=== PATIENT | female | born 1995 | race Caucasian/White ===

== ENCOUNTER 2016-08-20 10:38 | Emergency (ER) | payer OTHER ==
[2016-08-20 10:54] VITALS: RESP 18
[2016-08-20] MEDS ORDERED: ONDANSETRON 4 MG/2 ML VIAL IVP ONE (11:37)
[2016-08-20] MEDS ORDERED: NS 1,000 ML IV ONE (11:37)
[2016-08-20] MEDS ORDERED: ONDANSETRON 4 MG/2 ML VIAL ONE (11:37)
--- NOTE | 2016-08-20 11:41 | UCPHY ---
H & P Time Seen by Provider: 08/20/16 11:20 Patient Type: Established HPI/ROS: This patient presents with a chief complaint of abdominal pain, nausea, vomiting , diarrhea all of which began 4 hours prior to my evaluation. She says that she has had 3 or 4 episodes of vomiting and 2 or 3 episodes of diarrhea neither containing blood. Last night she was feeling congested and generally unwell and this continues but she had no gastrointestinal symptoms at that time. The patient denies any radiation of the pain and also denies any palliative or provocative features. She has not felt feverish. She denies any recent exposure to anyone with a similar illness, denies ingesting any questionable foods and has not traveled recently. This patient has been seen here 3 times in the past 3 years for similar symptoms. On the 2 previous 2 visits she was thought to have had gastroenteritis. REVIEW OF SYSTEMS: Constitutional: Malaise, no fever Eyes: No complaints ENT: Nasal congestion, denies sore throat or ear pain Respiratory: Mild cough Cardiac: No chest pain Gastrointestinal: See above Genitourinary: No complaints Musculoskeletal: No myalgias Skin: No rash Neurological: Mild headache Smoking Status: Never smoked Physical Exam: GENERAL: Well-appearing, well-nourished and in no acute distress. HEAD: Atraumatic, normocephalic. EYES: sclera anicteric, conjunctiva are normal. ENT: oropharynx clear without exudates. Moist mucous slightly dry. NECK: Normal range of motion, supple without lymphadenopathy or JVD. LUNGS: Breath sounds clear to auscultation bilaterally and equal. No wheezes rales or rhonchi. HEART: Regular rate and rhythm ABDOMEN: Soft, minimally tender in the periumbilical area, normoactive bowel sounds. No guarding, no rebound. No masses appreciated. EXTREMITIES: Normal range of motion, no pitting or edema. No clubbing or cyanosis. NEUROLOGICAL: Cranial nerves II through XII grossly intact. Normal speech, normal gait. PSYCH: Normal mood, normal affect. SKIN: Warm, dry, normal turgor, no visible rashes or lesions. Constitutional: Initial Vital Signs Temperature (C) 36.8 C 08/20/16 10:52 Heart Rate 89 08/20/16 10:52 Respiratory Rate 18 08/20/16 10:52 Blood Pressure 128/76 H 08/20/16 10:52 O2 Sat (%) 95 08/20/16 10:52 O2 Delivery Mode Room Air Allergies/Adverse Reactions: No Known Allergies Allergy (Verified 08/20/16 12:05) Home Medications: Medication Instructions Recorded Desogestrel-Ethinyl Estradiol 12/23/14 [Apri 28 Day Tablet] Ondansetron Odt [Zofran Odt] 4 mg PO Q4PRN PRN #4 tab 08/20/16 Phenergan 25mg (*) 08/20/16 Medical Decision Making ED Course/Re-evaluation: An IV was started and the patient was given 1 L of normal saline and 4 mg of Zofran intravenously. On discharge is patient was feeling significantly improved with no persistent nausea, no recurrence of the diarrhea and resolution of the abdominal pain. Differential Diagnosis: I believe that this patient has a viral gastroenteritis and that add there is no evidence of any serious intra-abdominal pathology including appendicitis, PID , ovarian cyst or ectopic . - Data Points Medications Given: Discontinued Medications Sodium Chloride (Ns) 1,000 mls @ 0 mls/hr IV ONCE ONE PRN Reason: As Directed Stop: 08/20/16 11:38 Last Admin: 08/20/16 11:52 Dose: 1,000 mls Ondansetron HCl (Zofran) 4 mg IVP EDNOW ONE Stop: 08/20/16 11:38 Last Admin: 08/20/16 11:52 Dose: 4 mg Departure - Departure Disposition: Home, Routine, Self-Care Clinical Impression: Acute gastroenteritis Condition: Good Instructions: Acute Nausea and Vomiting (ED), Gastroenteritis (ED), Dehydration (ED) Additional Instructions: If your symptoms return you should be re-evaluated immediately. Do not eat any solids for the next 8 hours but to keep herself well hydrated with small sips of fluid frequently. Referrals: Darlene Fish MD [Primary Care Provider] - As per Instructions Prescriptions: Ondansetron Odt [Zofran Odt] 4 mg PO Q4PRN PRN #4 tab PRN Reason: For Nausea & Vomiting - PQRS PQRS Measurement: Not applicable
[2016-08-20 12:43] VITALS: BP 122/71; PULSE 76; TEMP 98.1; O2SAT 97
[2016-08-20 13:00] LABS: % IMMATURE GRANULYOCYTES 0.1 % (0.0-1.1); ABSOLUTE IMMATURE GRANULOCYTES 0.01 10^3/uL (0.00-0.10); ADD DIFF? NO; ADD MORPH? NO; ADD SCAN? NO; ATYPICAL LYMPHOCYTE FLAG 20 (0-99); FRAGMENT RBC FLAG 0 (0-99); HEMATOCRIT 48.6 % (38.0-47.0); HEMOGLOBIN 16.5 g/dL (12.6-16.3); LEFT SHIFT FLG 0 (0-99); LIPEMIA HEMOLYSIS FLAG 90 (0-99); MEAN CELL HEMOGLOBIN 29.8 pg (27.9-34.1); MEAN CELL VOLUME 87.7 fL (81.5-99.8); MEAN PLATELET VOLUME 9.8 fL (8.7-11.7); PLATELET CLUMPS FLAG 10 (0-99); PLATELET COUNT 282 10^3/uL (150-400); RED BLOOD CELL COUNT 5.54 10^6/uL (4.18-5.33); RED CELL DISTRIBUTION WIDTH 12.5 % (11.5-15.2)
[2016-08-20 13:05] LABS: ANION GAP 13 mEq/L (8-16); CALCIUM 9.4 mg/dL (8.5-10.4); CARBON DIOXIDE 25 mEq/l (22-31); CHLORIDE 104 mEq/L (97-110); CREATININE 0.8 mg/dL (0.6-1.0); GLOMERULAR FILTRATION RATE > 60; GLUCOSE 90 mg/dL (70-100); SODIUM 142 mEq/L (134-144)
== END 2016-08-20 12:48 | disposition home or self-care (01) ==
LOC: CED 10:38
DX: K52.9 Noninfective gastroenteritis and colitis, unspecified (principal)
CPT/HCPCS: 80048-PO; 85025-PO; 96361-PO; 96374-PO; 99214-PO; G0463-PO; J2405

== ENCOUNTER 2016-10-13 10:02 | Emergency (ER) | payer OTHER ==
[2016-10-13 10:17] VITALS: O2SAT 96
[2016-10-13] MEDS ORDERED: NS 1,000 ML IV ONE (11:13)
--- NOTE | 2016-10-13 11:16 | EDPHY ---
H & P Stated Complaint: N/V wantes US, seen at [facility] [place] several times for same complaint Source: Patient - Personal History LMP (Females 10-55): Over 28 Days Ago Current Tetanus/Diphtheria Vaccine: Yes Current Tetanus Diphtheria and Acellular Pertussis (TDAP): Yes - Medical/Surgical History Hx Asthma: No Hx Chronic Respiratory Disease: No Hx Diabetes: No Hx Cardiac Disease: No Hx Renal Disease: No Hx Cirrhosis: No Hx Alcoholism: No Hx HIV/AIDS: No Hx Splenectomy or Spleen Trauma: No Other PMH: ADD, IBS, GERD - Social History Smoking Status: Never smoked Time Seen by Provider: 10/13/16 11:00 HPI/ROS: CHIEF COMPLAINT: Nausea vomiting diarrhea since this morning HISTORY OF PRESENT ILLNESS: 21-year-old female complaining of nausea vomiting diarrhea since 6:00 a.m. today. No focal abdominal pain. She had scant amount of bloody appearing emesis, currently resolved. No melena or hematochezia. No fever or chills. She has had recurrent symptoms similar to this for the past 2- 3 years, has been seen initially by pediatric lead cashier with negative upper endoscopy and is currently being followed by Dr. Misty nicole and has an MRCP that is being scheduled by her office. REVIEW OF SYSTEMS: A ten point review of systems was erformed and is negative with the exception of the items mentioned in the HPI PAST MEDICAL & SURGICAL HISTORY: Ongoing history of similar symptoms SOCIAL HISTORY: nonsmoker no alcohol PHYSICAL EXAM (Prior to examination, patient consented to physical exam, hands were washed and my usual and customary physical exam procedures followed) 1) GENERAL: Well-developed, well-nourished, alert and oriented. Appears to be in no acute distress. 2) HEAD: Normocephalic, atraumatic 3) HEENT: Pupils equal, round, reactive to light bilaterally. Sclera anicteric. Nasopharynx, oropharynx, clear, no lesions. Ears bilaterally with normal tympanic membranes. 4) NECK: Full range of motion, no meningeal signs. 5) LUNGS: Clear auscultation bilaterally, no wheezes, no rhonchi, no retractions. 6) HEART: Regular rate and rhythm, no murmur, no heave, no gallop. 7) ABDOMEN: No guarding, no rebound, no focal tenderness, negative McBurney's, negative Salas's, negative Rovsing's, negative peritoneal sign,I am unable to elicit any abdominal pain on exam. 8) MUSCULOSKELETAL: Moving all extremities, no focal areas of tenderness, no obvious trauma. No peripheral edema or discoloration. 9) BACK: No CVA tenderness, no midline vertebral tenderness, no fluctuance, no step-off, no obvious trauma, no visual or palpable abnormality. 10) SKIN: No rash, no petechiae. 11) Psychiatric: Patient is oriented X 3, there is no agitation. DIFFERENTIAL DIAGNOSIS: My differential diagnosis includes, but is not limited to, acute appendicitis, acute cholecystitis, bowel obstruction, acute pancreatitis, ovarian torsion, ectopic , gastritis . The patient understands that this diagnosis is provisional and can never be 100% accurate. This is a partial list of diagnoses considered. These considerations are based on history, physical exam, past history and reassessment. (Jose Luis Silveira) Constitutional: Initial Vital Signs Temperature (C) 36.6 C 10/13/16 10:13 Heart Rate 87 10/13/16 10:13 Respiratory Rate 16 10/13/16 10:13 Blood Pressure 107/79 10/13/16 10:13 O2 Sat (%) 96 10/13/16 10:13 O2 Delivery Mode Room Air Allergies/Adverse Reactions: No Known Allergies Allergy (Verified 08/20/16 12:05) Home Medications: Medication Instructions Recorded Desogestrel-Ethinyl Estradiol 12/23/14 [Apri 28 Day Tablet] Ondansetron Odt [Zofran Odt] 4 mg PO Q4PRN PRN #4 tab 08/20/16 Phenergan 25mg (*) 08/20/16 Ondansetron Odt [Zofran Odt] 4 mg PO Q4PRN PRN #10 tab 10/13/16 Medical Decision Making ED Course/Re-evaluation: 11:14 a.m.: Patient has not received anti emetic. I have examined. She would like to attempt oral fluid challenge prior to receiving anti emetic. At this time she has no abdominal pain. Doubt acute surgical abdominal pathology. She did inquire about ultrasound stating that she contacted the phone nurse recommend she get an ultrasound for possible etiology of her hematemesis. We discussed the possibility of Hannah-Escobar tear. She is currently asymptomatic. I do not think that ultrasonography is currently indicated as I doubt acute cholecystitis or acute appendicitis. The father also inquired about having an MRCP performed which is currently to be scheduled by Dr. Molina. I Do not think emergent MRCP is indicated. 12:30 p.m.: Patient re-evaluated. She has not been given any antiemetics in the ER and has tolerate oral intake. Re-examined her. Her abdomen is soft no guarding no rebound. Doubt acute surgical abdominal pathology. She would like me to speak with her lead cashier to provide updates. 12:50 p.m.: Phone consultation with Dr. Mohit Parra, on-call for Dr. Molina . I have updated Dr. Mohit Parra with the patient's diagnostic results, current physical exam findings. Patient re-examined at this time. She is smiling, sitting upright, no guarding of abdomen, soft abdomen with no McBurney's point pain, negative Salas's sign.Patient is tolerating oral intake. Doubt acute surgical abdominal pathology. Do not think that emergent imaging studies indicated. Patient is comfortable with this plan. usual and customary discharge precautions instructions provided. (Jose Luis Silveira) Other Provider: The patient was evaluated and managed by the Physician Vegetable Farmer/ Nurse Practitioner. My co-signature indicates that I have reviewed this chart and I agree with the findings and plan of care as documented. I am the secondary supervising physician. (Archana Wesley) - Data Points Laboratory Results: Laboratory Results 10/13/16 10:51 10/13/16 10:51 10/13/16 10/13/16 10/13/16 10:51 10:51 10:51 WBC 11.45 10^3/uL H 10^3/uL (3.80-9.50) RBC 5.22 10^6/uL 10^6/uL (4.18-5.33) Hgb 15.7 g/dL g/dL (12.6-16.3) Hct 45.2 % % (38.0-47.0) MCV 86.6 fL fL (81.5-99.8) MCH 30.1 pg pg (27.9-34.1) MCHC 34.7 g/dL g/dL (32.4-36.7) RDW 12.9 % % (11.5-15.2) Plt Count 368 10^3/uL 10^3/uL (150-400) MPV 9.4 fL fL (8.7-11.7) Neut % (Auto) 82.8 % H % (39.3-74.2) Lymph % (Auto) 13.4 % L % (15.0-45.0) [place] % (Auto) 2.8 % L % (4.5-13.0) Eos % (Auto) 0.2 % L % (0.6-7.6) Baso % (Auto) 0.5 % % (0.3-1.7) Nucleat RBC Rel Count 0.0 % % (0.0-0.2) Absolute Neuts (auto) 9.48 10^3/uL H 10^3/uL (1.70-6.50) Absolute Lymphs (auto) 1.53 10^3/uL 10^3/uL (1.00-3.00) Absolute Monos (auto) 0.32 10^3/uL 10^3/uL (0.30-0.80) Absolute Eos (auto) 0.02 10^3/uL L 10^3/uL (0.03-0.40) Absolute Basos (auto) 0.06 10^3/uL 10^3/uL (0.02-0.10) Absolute Nucleated RBC 0.00 10^3/uL 10^3/uL (0-0.01) Immature Gran % 0.3 % % (0.0-1.1) Immature Gran # 0.04 10^3/uL 10^3/uL (0.00-0.10) Sodium 143 mEq/L mEq/L (134-144) Potassium 4.3 mEq/L mEq/L (3.5-5.2) Chloride 106 mEq/L mEq/L (97-110) Carbon Dioxide 23 mEq/l mEq/l (22-31) Anion Gap 14 mEq/L mEq/L (8-16) BUN 12 mg/dL mg/dL (7-23) Creatinine 0.8 mg/dL mg/dL (0.6-1.0) Estimated GFR > 60 Glucose 96 mg/dL mg/dL (70-100) Calcium 10.1 mg/dL mg/dL (8.5-10.4) Total Bilirubin 0.7 mg/dL mg/dL (0.1-1.4) Conjugated Bilirubin 0.5 mg/dL mg/dL (0.0-0.5) Unconjugated Bilirubin 0.2 mg/dL mg/dL (0.0-1.1) AST 33 IU/L IU/L (14-46) ALT 44 IU/L IU/L (9-52) Alkaline Phosphatase 75 IU/L IU/L (38-126) Total Protein 8.6 g/dL H g/dL (6.3-8.2) Albumin 4.9 g/dL g/dL (3.5-5.0) Lipase 234.0 IU/L IU/L (23-300) Beta HCG, Qual NEGATIVE Medications Given: Discontinued Medications Sodium Chloride (Ns) 1,000 mls @ 0 mls/hr IV ONCE ONE PRN Reason: Wide Open Stop: 10/13/16 11:14 Last Admin: 10/13/16 11:21 Dose: 1,000 mls Departure - Departure Disposition: Home, Routine, Self-Care Clinical Impression: Nausea & vomiting Qualifiers: Vomiting type: unspecified Vomiting Intractability: non-intractable Qualified Code(s): R11.2 - Nausea with vomiting, unspecified Condition: Good Instructions: Acute Nausea and Vomiting (ED) Additional Instructions: Seek immediate medical attention if you develop new or worsening symptoms, if you develop fevers, chills, inability to tolerate oral intake or any other symptoms that concerns you. Referrals: Darlene Fish MD [Primary Care Provider] - As per Instructions Stand Alone Forms: Work Excuse Prescriptions: Ondansetron Odt [Zofran Odt] 4 mg PO Q4PRN PRN #10 tab PRN Reason: Nausea
[2016-10-13 11:20] LABS: % IMMATURE GRANULYOCYTES 0.3 % (0.0-1.1); ABSOLUTE IMMATURE GRANULOCYTES 0.04 10^3/uL (0.00-0.10); ADD DIFF? NO; ADD MORPH? NO; ADD SCAN? NO; ATYPICAL LYMPHOCYTE FLAG 20 (0-99); FRAGMENT RBC FLAG 0 (0-99); HEMATOCRIT 45.2 % (38.0-47.0); HEMOGLOBIN 15.7 g/dL (12.6-16.3); LEFT SHIFT FLG 0 (0-99); LIPEMIA HEMOLYSIS FLAG 90 (0-99); MEAN CELL HEMOGLOBIN 30.1 pg (27.9-34.1); MEAN CELL HEMOGLOBIN CONCENTR. 34.7 g/dL (32.4-36.7); MEAN CELL VOLUME 86.6 fL (81.5-99.8); MEAN PLATELET VOLUME 9.4 fL (8.7-11.7); PLATELET CLUMPS FLAG 0 (0-99); PLATELET COUNT 368 10^3/uL (150-400); RED BLOOD CELL COUNT 5.22 10^6/uL (4.18-5.33); RED CELL DISTRIBUTION WIDTH 12.9 % (11.5-15.2)
[2016-10-13 11:26] LABS: ALANINE AMINOTRANSFERASE 44 IU/L (9-52); ALBUMIN 4.9 g/dL (3.5-5.0); ALKALINE PHOSPHATASE 75 IU/L (38-126); ANION GAP 14 mEq/L (8-16); ASPARTATE AMINOTRANSFERASE 33 IU/L (14-46); BILIRUBIN,TOTAL 0.7 mg/dL (0.1-1.4); BILIRUBIN-CONJUGATED 0.5 mg/dL (0.0-0.5); BILIRUBIN-UNCONJUGATED 0.2 mg/dL (0.0-1.1); CALCIUM 10.1 mg/dL (8.5-10.4); CARBON DIOXIDE 23 mEq/l (22-31); CHLORIDE 106 mEq/L (97-110); CREATININE 0.8 mg/dL (0.6-1.0); GLOMERULAR FILTRATION RATE > 60; GLUCOSE 96 mg/dL (70-100); POTASSIUM 4.3 mEq/L (3.5-5.2); SODIUM 143 mEq/L (134-144); TOTAL PROTEIN 8.6 g/dL (6.3-8.2)
[2016-10-13 13:18] VITALS: BP 114/72; PULSE 82; RESP 18; TEMP 98.1
== END 2016-10-13 13:18 | disposition home or self-care (01) ==
DX: R11.2 Nausea with vomiting, unspecified (principal); Z79.82 Long term (current) use of aspirin

== ENCOUNTER 2016-12-04 09:17 | Emergency (ER) | payer OTHER ==
[2016-12-04] MEDS ORDERED: ONDANSETRON DISINTEGRATING 4 MG TAB PO ONE (09:35)
[2016-12-04 09:36] VITALS: O2SAT 97
[2016-12-04] MEDS ORDERED: HYOSCYAMINE SULFATE 0.125 MG TAB PO ONE (09:36)
--- NOTE | 2016-12-04 09:36 | EDPHY ---
H & P Stated Complaint: c/o another episode of lower cramping/N/V since 729 Time Seen by Provider: 12/04/16 09:26 HPI/ROS: CHIEF COMPLAINT: Acute exacerbation of chronic abdominal pain HISTORY OF PRESENT ILLNESS: The patient presents to the ED with an acute exacerbation of chronic abdominal pain. She has a nearly 2 year history of chronic intermittent abdominal pain and has had a fairly extensive evaluation today. The patient is currently under the care of a data governance consultant at [facility]. The patient is scheduled to see her on . The patient does report occasional alcohol use. The patient reports she is a daily marijuana user. She has not tried abstain from marijuana despite some providers telling her there may be an association between her daily marijuana use and her increasing episodes of abdominal pain and vomiting. The patient does not feel as if this could be canaboid-induced hyperemesis because she is having symptoms of diarrhea. The patient denies dysuria. The patient did take Zofran prior to arrival. She has been prescribed Zofran and Levsin. REVIEW OF SYSTEMS: A comprehensive 10 point review of systems is otherwise negative aside from elements mentioned in the history of present illness. Source: Patient Exam Limitations: No limitations - Personal History LMP (Females 10-55): 15-21 Days Ago - Medical/Surgical History Hx Asthma: No Hx Chronic Respiratory Disease: No Hx Diabetes: No Hx Cardiac Disease: No Hx Renal Disease: No Hx Cirrhosis: No Hx Alcoholism: No Hx HIV/AIDS: No Hx Splenectomy or Spleen Trauma: No Other PMH: ADD, IBS, GERD - Social History Smoking Status: Never smoked - Physical Exam Exam: General Appearance: Alert, no distress Eyes: Pupils equal and round no pallor or injection ENT, Mouth: Mucous membranes moist Respiratory: There are no retractions, lungs are clear to auscultation Cardiovascular: Regular rate and rhythm Gastrointestinal: Abdomen is soft and nontender, no masses, bowel sounds normal Neurological: Minimal tenderness to palpation noted in the left lower quadrant , no peritoneal signs, normal bowel sounds Skin: Warm and dry, no rashes Musculoskeletal: Neck is supple nontender Extremities: symmetrical, full range of motion Constitutional: Initial Vital Signs Temperature (C) 36.6 C 12/04/16 09:33 Heart Rate 85 12/04/16 09:33 Respiratory Rate 18 12/04/16 09:33 Blood Pressure 162/132 H 12/04/16 09:33 O2 Sat (%) 97 12/04/16 09:33 O2 Delivery Mode Room Air Allergies/Adverse Reactions: No Known Allergies Allergy (Verified 08/20/16 12:05) Home Medications: Medication Instructions Recorded Desogestrel-Ethinyl Estradiol 12/23/14 [Apri 28 Day Tablet] Ondansetron Odt [Zofran Odt] 4 mg PO Q4PRN PRN #4 tab 08/20/16 Levsin 12/04/16 Medical Decision Making ED Course/Re-evaluation: I reviewed the patient's past medical records including her multiple ED visits and urgent care visits over the past 2 years. I find the patient's initial abdominal examination to be quite benign and reassuring. She has no evidence of a surgical abdomen. The patient was given a Zofran ODT and Levsin tablet by myself at 9:45 a.m.. The patient remarkable. I find the patient's abdominal examination is benign. I do not feel that imaging her abdomen is indicated at this point time. The patient does plan to follow up with her data governance consultant this week. The patient had no recurrent vomiting in the emergency department. The patient will be discharged home with customary aftercare instructions. Differential Diagnosis: Differential diagnosis considered includes chronic abdominal pain, cannabis induced hyperemesis, dehydration, metabolic abnormality, pancreatitis - Data Points Laboratory Results: Laboratory Results 12/04/16 09:48 12/04/16 09:48 12/04/16 12/04/16 12/04/16 09:48 09:48 09:48 WBC 12.22 10^3/uL H 10^3/uL (3.80-9.50) RBC 5.28 10^6/uL 10^6/uL (4.18-5.33) Hgb 15.7 g/dL g/dL (12.6-16.3) Hct 45.0 % % (38.0-47.0) MCV 85.2 fL fL (81.5-99.8) MCH 29.7 pg pg (27.9-34.1) MCHC 34.9 g/dL g/dL (32.4-36.7) RDW 12.4 % % (11.5-15.2) Plt Count 357 10^3/uL 10^3/uL (150-400) MPV 9.3 fL fL (8.7-11.7) Neut % (Auto) 79.0 % H % (39.3-74.2) Lymph % (Auto) 16.3 % % (15.0-45.0) [place] % (Auto) 2.5 % L % (4.5-13.0) Eos % (Auto) 1.3 % % (0.6-7.6) Baso % (Auto) 0.6 % % (0.3-1.7) Nucleat RBC Rel Count 0.0 % % (0.0-0.2) Absolute Neuts (auto) 9.65 10^3/uL H 10^3/uL (1.70-6.50) Absolute Lymphs (auto) 1.99 10^3/uL 10^3/uL (1.00-3.00) Absolute Monos (auto) 0.31 10^3/uL 10^3/uL (0.30-0.80) Absolute Eos (auto) 0.16 10^3/uL 10^3/uL (0.03-0.40) Absolute Basos (auto) 0.07 10^3/uL 10^3/uL (0.02-0.10) Absolute Nucleated RBC 0.00 10^3/uL 10^3/uL (0-0.01) Immature Gran % 0.3 % % (0.0-1.1) Immature Gran # 0.04 10^3/uL 10^3/uL (0.00-0.10) Sodium 141 mEq/L mEq/L (134-144) Potassium 4.1 mEq/L mEq/L (3.5-5.2) Chloride 103 mEq/L mEq/L (97-110) Carbon Dioxide 22 mEq/l mEq/l (22-31) Anion Gap 16 mEq/L mEq/L (8-16) BUN 12 mg/dL mg/dL (7-23) Creatinine 0.7 mg/dL mg/dL (0.6-1.0) Estimated GFR > 60 Glucose 90 mg/dL mg/dL (70-100) Calcium 9.6 mg/dL mg/dL (8.5-10.4) Total Bilirubin 0.6 mg/dL mg/dL (0.1-1.4) Conjugated Bilirubin 0.3 mg/dL mg/dL (0.0-0.5) Unconjugated Bilirubin 0.3 mg/dL mg/dL (0.0-1.1) AST 24 IU/L IU/L (14-46) ALT 25 IU/L IU/L (9-52) Alkaline Phosphatase 74 IU/L IU/L (38-126) Total Protein 8.2 g/dL g/dL (6.3-8.2) Albumin 4.3 g/dL g/dL (3.5-5.0) Lipase 44.0 IU/L IU/L (23-300) Beta HCG, Qual NEGATIVE Medications Given: Discontinued Medications Hyoscyamine Sulfate (Levsin, Hyomax-Sl) 0.125 mg PO EDNOW ONE Stop: 12/04/16 09:37 Last Admin: 12/04/16 09:40 Dose: 0.125 mg Ondansetron HCl (Zofran Odt) 4 mg PO EDNOW ONE Stop: 12/04/16 09:36 Last Admin: 12/04/16 09:40 Dose: 4 mg Departure - Departure Disposition: Home, Routine, Self-Care Clinical Impression: Chronic abdominal pain Condition: Good Instructions: Abdominal Pain (ED) Additional Instructions: 1. Please follow up as scheduled with your data governance consultant. 2. Please continue to use Zofran and Levsin as prescribed by your data governance consultant. 3. I recommend complete abstinence from marijuana for a prolonged period of time to see if this improves your symptoms of chronic intermittent abdominal pain and vomiting. Referrals: Misty Molina MD [Medical Doctor] - As per Instructions
[2016-12-04 09:56] LABS: % IMMATURE GRANULYOCYTES 0.3 % (0.0-1.1); ABSOLUTE IMMATURE GRANULOCYTES 0.04 10^3/uL (0.00-0.10); ADD DIFF? NO; ADD MORPH? NO; ADD SCAN? NO; ATYPICAL LYMPHOCYTE FLAG 30 (0-99); FRAGMENT RBC FLAG 0 (0-99); HEMOGLOBIN 15.7 g/dL (12.6-16.3); LEFT SHIFT FLG 10 (0-99); LIPEMIA HEMOLYSIS FLAG 90 (0-99); MEAN CELL HEMOGLOBIN 29.7 pg (27.9-34.1); MEAN CELL HEMOGLOBIN CONCENTR. 34.9 g/dL (32.4-36.7); MEAN CELL VOLUME 85.2 fL (81.5-99.8); MEAN PLATELET VOLUME 9.3 fL (8.7-11.7); PLATELET CLUMPS FLAG 10 (0-99); PLATELET COUNT 357 10^3/uL (150-400); RED BLOOD CELL COUNT 5.28 10^6/uL (4.18-5.33); RED CELL DISTRIBUTION WIDTH 12.4 % (11.5-15.2)
[2016-12-04 10:07] LABS: ALANINE AMINOTRANSFERASE 25 IU/L (9-52); ALBUMIN 4.3 g/dL (3.5-5.0); ALKALINE PHOSPHATASE 74 IU/L (38-126); ANION GAP 16 mEq/L (8-16); ASPARTATE AMINOTRANSFERASE 24 IU/L (14-46); BILIRUBIN,TOTAL 0.6 mg/dL (0.1-1.4); BILIRUBIN-CONJUGATED 0.3 mg/dL (0.0-0.5); BILIRUBIN-UNCONJUGATED 0.3 mg/dL (0.0-1.1); CALCIUM 9.6 mg/dL (8.5-10.4); CARBON DIOXIDE 22 mEq/l (22-31); CHLORIDE 103 mEq/L (97-110); CREATININE 0.7 mg/dL (0.6-1.0); GLOMERULAR FILTRATION RATE > 60; GLUCOSE 90 mg/dL (70-100); POTASSIUM 4.1 mEq/L (3.5-5.2); SODIUM 141 mEq/L (134-144); TOTAL PROTEIN 8.2 g/dL (6.3-8.2)
[2016-12-04 10:59] VITALS: BP 111/73; PULSE 86; RESP 16; TEMP 98.1
== END 2016-12-04 10:56 | disposition home or self-care (01) ==
LOC: CED 09:17
DX: R10.9 Unspecified abdominal pain (principal); G89.29 Other chronic pain; Z79.82 Long term (current) use of aspirin
CPT/HCPCS: 80048-PO; 80076-PO; 83690-PO; 84703-PO; 85025-PO

== ENCOUNTER → 2017-01-31 | Outpatient (CLI) | payer OTHER ==
[~2017-01-31] MED LIST: GADOBUTROL 10 ML VIAL IVP ONE; GLUCAGON,HUMAN RECOMBINANT 0.3 MG in SYRINGE 0.3 ML IVP ONE
== END ==
LOC: FIMAGING 07:18
PROVIDERS: ATTEND Internal Medicine Gastroenterology
DX: R10.84 Generalized abdominal pain (principal); R11.0 Nausea; R19.7 Diarrhea, unspecified
CPT/HCPCS: A9585; J1610